=== PATIENT | female | born 1995 | race Caucasian/White ===

== ENCOUNTER 2021-04-15 03:29 | Emergency (ER) | payer OTHER ==
[2021-04-15] MEDS ORDERED: Ketorolac 30 MG/ML SDV IM ONE (04:02)
--- NOTE | 2021-04-15 04:07 | EDM.PDOC ---
ED HPI GENERAL MEDICAL PROBLEM - General Chief Complaint: General Stated Complaint: CHEST,BACK,SHOULDER PAIN Time Seen by Provider: 04/15/21 03:55 Source of Information: Reports: Patient. Denies: Old Records History Limitations: Reports: No Limitations - History of Present Illness INITIAL COMMENTS - FREE TEXT/NARRATIVE: 25 yo female from [facility] presents from [facility] with lower anterior chest and L upper back pain that has been present with waxing and waning since early this morning. No cough, fever, SOB, or change with swallowing. Got some relief of the L post upper back pain with a heating pad. Has not been drinking recently and is a non-smoker. Pain not worse with coughing. No calf pain or LE edema. No hx of the same. Onset: Gradual Onset Date: 04/14/21 Duration: Hour(s): (20), Waxing/Waning Location: Reports: Chest, Back Quality: Reports: Ache Severity: Mild Improves with: Reports: None Worsens with: Reports: None Context: Reports: Other (See HPI) Associated Symptoms: Reports: Chest Pain. 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: Other (see below) (none) Chest Pain Score (Numeric/FACES): 2 - Related Data Allergies Allergy/AdvReac Type Severity Reaction Status Date / Time acetaminophen [From Vicodin] Allergy Headache Verified 04/15/21 03:47 hydrocodone [From Vicodin] Allergy Headache Verified 04/15/21 03:47 Home Meds: Home Meds NK [No Known Home Meds] 04/15/21 [History] Social & Family History - Tobacco Use Tobacco Use Status *Q: Never Tobacco User - Caffeine Use Caffeine Use: Reports: None - Recreational Drug Use Recreational Drug Use: No ED ROS GENERAL - Review of Systems Review Of Systems: See Below Constitutional: Reports: No Symptoms HEENT: Reports: No Symptoms Respiratory: Reports: No Symptoms. Denies: Shortness of Breath, Pleuritic Chest Pain, Cough, Sputum Cardiovascular: Reports: Chest Pain GI/Abdominal: Reports: No Symptoms : Reports: No Symptoms Musculoskeletal: Reports: Back Pain (upper left) Skin: Reports: No Symptoms Neurological: Reports: No Symptoms ED EXAM, GENERAL - Physical Exam Exam: See Below Exam Limited By: No Limitations General Appearance: Alert, WD/WN, No Apparent Distress Eye Exam: Bilateral Eye: Normal Inspection Ears: Normal External Exam, Normal Canal, Hearing Grossly Normal, Normal TMs Ear Exam: Bilateral Ear: Auricle Normal, Canal Normal Nose: Normal Inspection, No Blood Throat/Mouth: Normal Inspection, Normal Lips, Normal Oropharynx, Normal Voice, No Airway Compromise Head: Atraumatic, Normocephalic Neck: Normal Inspection Respiratory/Chest: No Respiratory Distress, Lungs Clear, Normal Breath Sounds, No Accessory Muscle Use, Other (repetitive deep breathing during my lung exam did make her pain worse in the anterior chest. ) Cardiovascular: Regular Rate, Rhythm, No Edema GI/Abdominal: Normal Bowel Sounds, Soft, Non-Tender, No Distention Back Exam: Normal Inspection. No: CVA Tenderness (R), CVA Tenderness (L) Extremities: Normal Inspection, Normal Range of Motion, Non-Tender. No: Pedal Edema, Miley's Sign Neurological: Alert, Oriented, CN II-XII Intact, Normal Cognition, No Motor/Sensory Deficits Psychiatric: Normal Affect, Normal Mood Skin Exam: Warm, Dry, Intact, Normal Color, No Rash Course - Vital Signs Last Recorded V/S: Last Vital Signs Temp 36.8 C 04/15/21 03:45 Pulse 93 04/15/21 03:45 Resp 17 04/15/21 03:45 BP 119/63 04/15/21 03:45 Pulse Ox 99 04/15/21 03:45 - Orders/Labs/Meds Meds: Medications Discontinued Medications Generic Name Dose Route Start Last Admin Trade Name Freq PRN Reason Stop Dose Admin Ketorolac Tromethamine 30 mg 04/15/21 04:02 04/15/21 04:07 Ketorolac 30 Mg/Ml Sdv IM 04/15/21 04:03 30 mg ONETIME ONE Administration Departure - Departure Time of Disposition: 04:32 Disposition: Home, Self-Care 01 Condition: Good Clinical Impression: Chest wall pain - Discharge Information *PRESCRIPTION DRUG MONITORING PROGRAM REVIEWED*: Not Applicable *COPY OF PRESCRIPTION DRUG MONITORING REPORT IN PATIENT [id number]: Not Applicable Instructions: Chest Wall Pain, [id number] Referrals: PCP,None [Primary Care Provider] - Forms: ED Department Discharge Additional Instructions: Ibuprofen 600 mg every 6 hrs with food starting after 0930h today. Acetaminophen as needed. Recheck as needed. Sepsis Event Note (ED) - Evaluation Sepsis Screening Result: No Definite Risk - Focused Exam Vital Signs: Vital Signs Temp Pulse Resp BP Pulse Ox 04/15/21 03:45 36.8 C 93 17 119/63 99
== END 2021-04-15 04:43 | disposition home or self-care (01) ==
LOC: JP.ED 03:29
DX: R07.89 Other chest pain (principal); M54.6 Pain in thoracic spine; Z88.5 Allergy status to narcotic agent
CPT/HCPCS: 96372; 99283; J1885